=== PATIENT | male | born 1960 | race Caucasian/White ===

== ENCOUNTER → 2023-11-25 | Outpatient (CLI) | payer BC ==
[~2023-11-25] MED LIST: ASPIRIN 81M81 MG/TA2 PO; CLARITIN 1010 MG/TAB PO; PERCOCET 325 MG1 TA2 PO; VALIUM 5MG T5 MG/TAB PO
== END ==
LOC: COL.VAS 09:58
DX: I50.20 Unspecified systolic (congestive) heart failure (principal); G45.9 Transient cerebral ischemic attack, unspecified